=== PATIENT | female | born 1950 | race Caucasian/White ===

== ENCOUNTER 2022-03-27 11:07 | Inpatient (IN) | payer OTHER ==
[2022-03-27 12:31] LABS: BASO % 0.7 % (0-2.0); EOS % 0.7 % (0-4.5); HEMATOCRIT 23.4 % (32.4-45.2); HEMOGLOBIN 7.6 GM/dL (10.7-15.3); LYMPH % 9.5 % (8-40); MCH 28.8 pg (25.7-33.7); MCHC 32.6 g/dl (32.0-36.0); MEAN CELL VOLUME 88.6 fl (80-96); MEAN PLT VOLUME 8.1 fl (7.5-11.1); MONO % 9.9 % (3.8-10.2); NEUT % 79.2 % (42.8-82.8); PLATELET COUNT 146 10^3/uL (134-434); RBC 2.64 M/mm3 (3.60-5.2); RDW 17.3 % (11.6-15.6); WHITE BLOOD COUNT 8.6 K/mm3 (4.0-10.0)
[2022-03-27] MEDS ORDERED: PIPERACILLIN/TAZOB 4.5 GM 4.5 GM in DEXTROSE 5%-WATER 100 ML IVPB ONE (13:56)
[2022-03-27] MEDS ORDERED: VANCOMYCIN/WATER 1,250 MG/250 ML BAG (RESTRICTED TO ID ONLY) IVPB ONE (13:57)
[2022-03-27 13:58] LABS: ALBUMIN 2.6 g/dl (3.4-5.0); BILIRUBIN,TOTAL 1.7 mg/dL (0.2-1); BLOOD UREA NITROGEN 56.6 mg/dL (7-18); CALCIUM 9.3 mg/dL (8.5-10.1); CREATININE 1.6 mg/dL (0.55-1.3); N-TERMINAL BNP 1011.6 pg/ml (5-125)
[2022-03-27] MEDS ORDERED: FUROSEMIDE 40 MG/4 ML INJECTABLE VIAL IVPUSH ONE (14:12)
[2022-03-27] MEDS ORDERED: PIPERACILLIN/TAZOB 4.5 GM 4.5 GM/100 ML BAG IVPB ONE (14:31)
[2022-03-27] MEDS ORDERED: FUROSEMIDE 40 MG/4 ML INJECTABLE VIAL ONE (14:31)
[2022-03-27] MEDS ORDERED: VANCOMYCIN/WATER FOR INJ (PEG) 1,000 MG/200 ML BAG IVPB ONE (14:40)
[2022-03-27 17:11] LABS: LACTIC ACID 2.5 mmol/L (0.4-2.0)
[2022-03-27 17:34] LABS: EPI CELLS 6 /uL (0-25.1); HYALINE CASTS 1 /uL (0-3.1); URINE APPEARANCE CLOUDY; URINE BACTERIA 7 /uL (0-1359); URINE BILIRUBIN NEGATIVE (NEGATIVE); URINE COLOR ORANGE; URINE GLUCOSE (UA) NEGATIVE (NEGATIVE); URINE KETONE NEGATIVE (NEGATIVE); URINE LEUK ESTERASE 1+ (NEGATIVE); URINE NITRITE NEGATIVE (NEGATIVE); URINE PROTEIN 2+ (NEGATIVE); URINE RBC 3154 /uL (0-23.9); URINE UROBILINOGEN 0.2 mg/dL (0.2-1.0); URINE WBC 14 /uL (0-25.8)
[2022-03-27 23:20] VITALS: BMI 46.8
[2022-03-28 09:13] LABS: EOS % 1.7 % (0-4.5); HEMATOCRIT 24.1 % (32.4-45.2); HEMOGLOBIN 7.9 GM/dL (10.7-15.3); MCH 28.5 pg (25.7-33.7); MCHC 32.7 g/dl (32.0-36.0); MEAN PLT VOLUME 8.5 fl (7.5-11.1); MONO % 12.2 % (3.8-10.2); NEUT % 70.1 % (42.8-82.8); PLATELET COUNT 134 10^3/uL (134-434); RBC 2.77 M/mm3 (3.60-5.2); RDW 17.9 % (11.6-15.6); WHITE BLOOD COUNT 9.6 K/mm3 (4.0-10.0)
[2022-03-28 09:17] LABS: BILIRUBIN,DIRECT 1.1 mg/dL (0.0-0.2)
[2022-03-28 09:19] LABS: BILIRUBIN,TOTAL 2.5 mg/dL (0.2-1)
[2022-03-28 09:21] LABS: ALBUMIN 2.2 g/dl (3.4-5.0); CALCIUM 8.9 mg/dL (8.5-10.1)
[2022-03-28 09:22] LABS: MAGNESIUM 2.2 mg/dL (1.8-2.4)
[2022-03-28 09:24] LABS: CREATININE 1.5 mg/dL (0.55-1.3)
[2022-03-28 09:25] LABS: PHOSPHOROUS 3.2 mg/dL (2.5-4.9)
[2022-03-28 09:26] LABS: BILIRUBIN,TOTAL 2.5 mg/dL (0.2-1); TOT PROT 6.3 g/dl (6.4-8.2)
[2022-03-28] MEDS ORDERED: FLU VACC QS2022-23(6MOS UP)/PF 60 MCG/0.5 ML SYRINGE IM ONE (10:00)
[2022-03-28] MEDS ORDERED: PNEUMOC 20-VAL CONJ-DIP CRM/PF 0.5 ML SYRINGE IM ONE (10:00)
[2022-03-28] MEDS ORDERED: PANTOPRAZOLE SODIUM 40 MG VIAL IVPUSH SCH (10:00)
[2022-03-28] MEDS ORDERED: FUROSEMIDE 40 MG/4 ML INJECTABLE VIAL IVPUSH SCH ×2 (10:00)
[2022-03-28] MEDS ORDERED: NYSTATIN POWDER 100,000 UNITS/GM - 15 GM TOPICAL POWDER TP ONE (10:58)
[2022-03-28 12:20] LABS: ACTIVATED PTT 29.4 SECONDS (25.2-36.5); INR 2.11 (0.83-1.09); PROTHROMBIN TIME (PATIENT) 24.4 SEC (9.7-13.0)
[2022-03-28] MEDS: INSULIN SLIDING SCALE (NOVOLOG) 1 VIAL SQ SCH ×5 (12:24→21:31)
[2022-03-28] MEDS: POLYETHYLENE GLYCOL (HEALTHYLAX) 3350 17 GM PACKET PO SCH ×2 (12:47→12:56)
[2022-03-28] MEDS ORDERED: NYSTATIN POWDER 100,000 UNITS/GM - 15 GM TOPICAL POWDER TP SCH (14:00)
[2022-03-28] MEDS: NYSTATIN POWDER 100,000 UNITS/GM - 15 GM TOPICAL POWDER TP SCH ×2 (15:14→23:21)
[2022-03-28] MEDS ORDERED: MELATONIN 5 MG TABLETS PO PRN (16:35)
[2022-03-28 16:36] LABS: HEMATOCRIT 24.4 % (32.4-45.2); HEMOGLOBIN 7.9 GM/dL (10.7-15.3); MCH 28.2 pg (25.7-33.7); MCHC 32.5 g/dl (32.0-36.0); MEAN CELL VOLUME 86.7 fl (80-96); MEAN PLT VOLUME 8.9 fl (7.5-11.1); PLATELET COUNT 142 10^3/uL (134-434); RBC 2.81 M/mm3 (3.60-5.2); RDW 18.1 % (11.6-15.6); WHITE BLOOD COUNT 9.8 K/mm3 (4.0-10.0)
[2022-03-28] MEDS: ACETAMINOPHEN 325 MG TABLET (FP) PO PRN (20:16)
[2022-03-28 21:29] LABS: CALCIUM 8.6 mg/dL (8.5-10.1)
[2022-03-28 21:33] LABS: CREATININE 1.4 mg/dL (0.55-1.3)
[2022-03-29] MEDS: INSULIN SLIDING SCALE (NOVOLOG) 1 VIAL SQ SCH ×4 (06:08→22:05)
[2022-03-29] MEDS: NYSTATIN POWDER 100,000 UNITS/GM - 15 GM TOPICAL POWDER TP SCH ×3 (06:08→22:07)
[2022-03-29 09:45] LABS: HEMOGLOBIN 8.4 GM/dL (10.7-15.3); MCH 28.3 pg (25.7-33.7); MCHC 32.1 g/dl (32.0-36.0); MEAN PLT VOLUME 8.8 fl (7.5-11.1); PLATELET COUNT 131 10^3/uL (134-434); RBC 2.96 M/mm3 (3.60-5.2); RDW 18.5 % (11.6-15.6); WHITE BLOOD COUNT 7.1 K/mm3 (4.0-10.0)
[2022-03-29] MEDS ORDERED: PANTOPRAZOLE 40 MG TABLET PO SCH (10:00)
[2022-03-29 10:12] LABS: ALBUMIN 2.2 g/dl (3.4-5.0)
[2022-03-29 10:17] LABS: TOT PROT 6.5 g/dl (6.4-8.2)
[2022-03-29] MEDS: POLYETHYLENE GLYCOL (HEALTHYLAX) 3350 17 GM PACKET PO SCH (10:44)
[2022-03-29] MEDS: FUROSEMIDE 40 MG/4 ML INJECTABLE VIAL IVPUSH SCH (10:44)
[2022-03-29] MEDS: PANTOPRAZOLE 40 MG TABLET PO SCH (10:44)
[2022-03-29] MEDS ORDERED: BISACODYL 5 MG TABLET.DR (FP) PO ONE (16:00)
[2022-03-29] MEDS ORDERED: PHYTONADIONE 10 MG/1 ML AMP SQ ONE ×2 (16:17→18:45)
[2022-03-29] MEDS ORDERED: PEG 3350/NA SULF BICARB CL/KCL 4000 ML SOLN.RECON PO ONE (17:00)
[2022-03-29] MEDS ORDERED: HYDROCHLOROTHIAZIDE 12.5 MG CAPSULE (FP) PO SCH (17:15)
[2022-03-29 17:16] LABS: CALCIUM 8.4 mg/dL (8.5-10.1)
[2022-03-29 17:17] LABS: BLOOD UREA NITROGEN 42.2 mg/dL (7-18)
[2022-03-29 17:20] LABS: CREATININE 1.4 mg/dL (0.55-1.3)
[2022-03-29] MEDS: ACETAMINOPHEN 325 MG TABLET (FP) PO PRN (20:26)
[2022-03-29 21:27] LABS: HEMATOCRIT 26.9 % (32.4-45.2); HEMOGLOBIN 8.7 GM/dL (10.7-15.3); MCH 28.2 pg (25.7-33.7); MCHC 32.2 g/dl (32.0-36.0); MEAN CELL VOLUME 87.5 fl (80-96); MEAN PLT VOLUME 8.6 fl (7.5-11.1); PLATELET COUNT 126 10^3/uL (134-434); RBC 3.08 M/mm3 (3.60-5.2); RDW 17.5 % (11.6-15.6); WHITE BLOOD COUNT 7.4 K/mm3 (4.0-10.0)
[2022-03-29] MEDS ORDERED: ATORVASTATIN CA 10 MG TABLET (FP) PO SCH (22:00)
[2022-03-29] MEDS ORDERED: ATENOLOL 50 MG TABLET (FP) PO SCH (22:00)
[2022-03-30] MEDS: NYSTATIN POWDER 100,000 UNITS/GM - 15 GM TOPICAL POWDER TP SCH ×3 (06:37→22:25)
[2022-03-30] MEDS: INSULIN SLIDING SCALE (NOVOLOG) 1 VIAL SQ SCH ×4 (06:37→22:24)
[2022-03-30] MEDS ORDERED: LISINOPRIL 10 MG TABLET PO SCH (10:00)
[2022-03-30 10:30] LABS: HEMATOCRIT 27.9 % (32.4-45.2); HEMOGLOBIN 9.3 GM/dL (10.7-15.3); LYMPH % 14.6 % (8-40); MCH 29.1 pg (25.7-33.7); MCHC 33.3 g/dl (32.0-36.0); MEAN CELL VOLUME 87.3 fl (80-96); MEAN PLT VOLUME 8.1 fl (7.5-11.1); MONO % 11.4 % (3.8-10.2); PLATELET COUNT 125 10^3/uL (134-434); RDW 17.6 % (11.6-15.6); WHITE BLOOD COUNT 7.1 K/mm3 (4.0-10.0)
[2022-03-30 10:33] LABS: INR 2.17 (0.83-1.09); PROTHROMBIN TIME (PATIENT) 25.1 SEC (9.7-13.0)
[2022-03-30 10:59] LABS: ALBUMIN 2.1 g/dl (3.4-5.0); CALCIUM 8.6 mg/dL (8.5-10.1)
[2022-03-30 11:02] LABS: CREATININE 1.2 mg/dL (0.55-1.3)
[2022-03-30 11:03] LABS: BILIRUBIN,TOTAL 2.4 mg/dL (0.2-1); TOT PROT 6.4 g/dl (6.4-8.2)
[2022-03-30] MEDS: FUROSEMIDE 40 MG/4 ML INJECTABLE VIAL IVPUSH SCH ×2 (14:25→14:40)
[2022-03-30] MEDS: POLYETHYLENE GLYCOL (HEALTHYLAX) 3350 17 GM PACKET PO SCH (14:41)
[2022-03-30] MEDS: PANTOPRAZOLE 40 MG TABLET PO SCH (14:42)
[2022-03-30 16:58] LABS: BLOOD UREA NITROGEN 37.1 mg/dL (7-18); CALCIUM 8.6 mg/dL (8.5-10.1)
[2022-03-30 16:59] LABS: ALBUMIN 2.1 g/dl (3.4-5.0)
[2022-03-30 17:02] LABS: CREATININE 1.3 mg/dL (0.55-1.3)
[2022-03-30 17:03] LABS: BILIRUBIN,TOTAL 1.9 mg/dL (0.2-1); TOT PROT 6.4 g/dl (6.4-8.2)
[2022-03-30] MEDS: ACETAMINOPHEN 325 MG TABLET (FP) PO PRN (22:25)
[2022-03-30] MEDS: propRANOLol HCL 10 MG TABLET PO SCH (22:25)
[2022-03-31 07:13] VITALS: BP 120/56; PULSE 72; RESP 18; TEMP 99
[2022-03-31] MEDS: INSULIN SLIDING SCALE (NOVOLOG) 1 VIAL SQ SCH (07:13)
[2022-03-31] MEDS: NYSTATIN POWDER 100,000 UNITS/GM - 15 GM TOPICAL POWDER TP SCH (07:14)
[2022-03-31] MEDS: FUROSEMIDE 40 MG/4 ML INJECTABLE VIAL IVPUSH SCH (07:15)
[2022-03-31] MEDS ORDERED: FUROSEMIDE 40 MG/4 ML INJECTABLE VIAL IVPUSH SCH (07:50)
[2022-03-31] MEDS: POLYETHYLENE GLYCOL (HEALTHYLAX) 3350 17 GM PACKET PO SCH (09:02)
[2022-03-31] MEDS: PANTOPRAZOLE 40 MG TABLET PO SCH (09:22)
[2022-03-31] MEDS: propRANOLol HCL 10 MG TABLET PO SCH (09:22)
== END 2022-03-31 10:00 | disposition short-term general hospital (02) | DRG 291 ==
LOC: JER 11:07 → JERBED 14:35 → J7W 21:33
PROVIDERS: ADMIT Internal Medicine; ATTEND Internal Medicine
PROC: 30233N1 Transfusion of Nonautologous Red Blood Cells into Peripheral Vein, Percutaneous Approach (ICD-10-PCS; 2022-03-30)
PROC: 0DJ08ZZ Inspection of Upper Intestinal Tract, Via Natural or Artificial Opening Endoscopic (ICD-10-PCS; principal; 2022-03-30 11:00)
DX: I11.0 Hypertensive heart disease with heart failure (principal); I50.31 Acute diastolic (congestive) heart failure; I85.00 Esophageal varices without bleeding; D64.9 Anemia, unspecified; E11.65 Type 2 diabetes mellitus with hyperglycemia; K75.81 Nonalcoholic steatohepatitis (NASH); E86.0 Dehydration; R16.0 Hepatomegaly, not elsewhere classified; I86.4 Gastric varices; E78.5 Hyperlipidemia, unspecified; E87.70 Fluid overload, unspecified
CPT/HCPCS: 0241U-QW; 36415; 36430; 71045-TC-FY; 76700-TC; 76856-TC; 80048; 80053; 80076; 81003; 82105; 82247; 82248; 82272; 82550; 82553; 82728; 82962; 83036; 83516; 83540; 83550; 83605; 83735; 83880; 84100; 84207; 84484; 85025; 85027; 85610; 85730; 86038; 86704; 86803; 86850; 86900; 86901; 86922; 87040; 87086; 87340; 87517; 93005; 93010; 93306-TC; 93970-TC; 97116-GP; 97161-GP; 99285-25; P9058

== ENCOUNTER 2022-05-19 10:31 | Inpatient (IN) | payer OTHER ==
[2022-05-19 11:04] VITALS: RESP 18
[2022-05-19 12:26] LABS: BASO % 0.6 % (0-2.0); EOS % 2.5 % (0-4.5); HEMATOCRIT 36.2 % (32.4-45.2); HEMOGLOBIN 12.3 GM/dL (10.7-15.3); LYMPH % 28.1 % (8-40); MCH 31.8 pg (25.7-33.7); MCHC 33.9 g/dl (32.0-36.0); MEAN CELL VOLUME 93.8 fl (80-96); MEAN PLT VOLUME 8.4 fl (7.5-11.1); MONO % 12.2 % (3.8-10.2); NEUT % 56.6 % (42.8-82.8); PLATELET COUNT 145 10^3/uL (134-434); RBC 3.86 M/mm3 (3.60-5.2); RDW 24.2 % (11.6-15.6); WHITE BLOOD COUNT 7.7 K/mm3 (4.0-10.0)
[2022-05-19 12:36] LABS: INR 1.87 (0.83-1.09); PROTHROMBIN TIME (PATIENT) 21.6 SEC (9.7-13.0)
[2022-05-19 12:37] LABS: CALCIUM 9.7 mg/dL (8.5-10.1)
[2022-05-19 12:38] LABS: ALBUMIN 2.3 g/dl (3.4-5.0); BLOOD UREA NITROGEN 49.3 mg/dL (7-18)
[2022-05-19 12:41] LABS: CREATININE 2.3 mg/dL (0.55-1.3)
[2022-05-19 12:42] LABS: BILIRUBIN,TOTAL 2.8 mg/dL (0.2-1)
[2022-05-19 12:49] LABS: EPI CELLS 4 /uL (0-25.1); HYALINE CASTS 7 /uL (0-3.1); URINE APPEARANCE TURBID; URINE BACTERIA >9,000 /uL (0-1359); URINE BILIRUBIN NEGATIVE (NEGATIVE); URINE COLOR ORANGE; URINE GLUCOSE (UA) NEGATIVE (NEGATIVE); URINE KETONE NEGATIVE (NEGATIVE); URINE LEUK ESTERASE 3+ (NEGATIVE); URINE NITRITE NEGATIVE (NEGATIVE); URINE PROTEIN 2+ (NEGATIVE); URINE RBC 5431 /uL (0-23.9); URINE WBC 8425 /uL (0-25.8)
[2022-05-19] MEDS ORDERED: LACTULOSE 20 GM/30 ML UDC (FOR ORAL USE ONLY) PO ONE (13:13)
[2022-05-19] MEDS ORDERED: CEFTRIAXONE 1 GM in DEXTROSE 5%-WATER - 100 ML IVPB ONE (13:13)
[2022-05-19] MEDS ORDERED: LACTATED RINGERS SOLUTION 1000 ML INFUS.BAG IV ONE (13:13)
[2022-05-19] MEDS ORDERED: LACTULOSE 20 GM/30 ML UDC (FOR ORAL USE ONLY) ONE (13:22)
[2022-05-19] MEDS ORDERED: CEFTRIAXONE 1 GM/50 ML BAG ONE (13:23)
[2022-05-19 14:34] LABS: ANISOCYTOSIS 2+; MACROCYTOSIS 0
[2022-05-19] MEDS: PANTOPRAZOLE 40 MG TABLET PO SCH (15:00)
[2022-05-19] MEDS: LACTATED RINGERS SOLUTION 1,000 ML/1,000 ML INFUS.BAG IV SCH (15:00)
[2022-05-19] MEDS ORDERED: PANTOPRAZOLE 40 MG TABLET PO ONE (15:33)
[2022-05-19 16:13] LABS: ALBUMIN 2.2 g/dl (3.4-5.0); CALCIUM 9.4 mg/dL (8.5-10.1)
[2022-05-19 16:14] LABS: BLOOD UREA NITROGEN 46.1 mg/dL (7-18)
[2022-05-19 16:18] LABS: BILIRUBIN,TOTAL 2.5 mg/dL (0.2-1); TOT PROT 7.4 g/dl (6.4-8.2)
[2022-05-19] MEDS: INSULIN SLIDING SCALE (NOVOLOG) 1 VIAL SQ SCH ×2 (17:24→22:09)
[2022-05-19 18:41] VITALS: BMI 33.0
[2022-05-19] MEDS: HEPARIN NA (PORCINE) 5,000 UNITS/ML 1ML VIAL SQ SCH (22:09)
[2022-05-20] MEDS: LACTATED RINGERS SOLUTION 1,000 ML/1,000 ML INFUS.BAG IV SCH (02:03)
[2022-05-20] MEDS: INSULIN SLIDING SCALE (NOVOLOG) 1 VIAL SQ SCH ×4 (06:47→21:10)
[2022-05-20 10:32] LABS: EOS % 2.3 % (0-4.5); HEMATOCRIT 32.9 % (32.4-45.2); HEMOGLOBIN 11.1 GM/dL (10.7-15.3); LYMPH % 25.5 % (8-40); MCH 31.8 pg (25.7-33.7); MCHC 33.9 g/dl (32.0-36.0); MEAN CELL VOLUME 93.9 fl (80-96); MEAN PLT VOLUME 8.3 fl (7.5-11.1); MONO % 11.9 % (3.8-10.2); NEUT % 59.3 % (42.8-82.8); PLATELET COUNT 119 10^3/uL (134-434); RDW 23.8 % (11.6-15.6); WHITE BLOOD COUNT 6.2 K/mm3 (4.0-10.0)
[2022-05-20] MEDS: PANTOPRAZOLE 40 MG TABLET PO SCH (10:49)
[2022-05-20] MEDS: ATENOLOL 25 MG TABLET (FP) PO SCH (10:49)
[2022-05-20] MEDS: HEPARIN NA (PORCINE) 5,000 UNITS/ML 1ML VIAL SQ SCH ×2 (10:49→21:05)
[2022-05-20] MEDS ORDERED: LACTATED RINGERS SOLUTION 1,000 ML/1,000 ML INFUS.BAG IV SCH (12:27)
[2022-05-20] MEDS: ACETAMINOPHEN 325 MG TABLET (FP) PO PRN ×2 (13:28→20:15)
[2022-05-20] MEDS: CEFTRIAXONE 1 GM in DEXTROSE 5%-WATER - 50 ML IVPB SCH (14:06)
[2022-05-21] MEDS: INSULIN SLIDING SCALE (NOVOLOG) 1 VIAL SQ SCH ×4 (06:19→22:35)
[2022-05-21 08:56] LABS: BASO % 1.5 % (0-2.0); EOS % 3.4 % (0-4.5); HEMATOCRIT 31.4 % (32.4-45.2); HEMOGLOBIN 10.7 GM/dL (10.7-15.3); LYMPH % 31.6 % (8-40); MCH 31.9 pg (25.7-33.7); MEAN PLT VOLUME 8.2 fl (7.5-11.1); MONO % 12.4 % (3.8-10.2); NEUT % 51.1 % (42.8-82.8); PLATELET COUNT 105 10^3/uL (134-434); RBC 3.34 M/mm3 (3.60-5.2); RDW 23.7 % (11.6-15.6); WHITE BLOOD COUNT 6.2 K/mm3 (4.0-10.0)
[2022-05-21 09:18] LABS: ALBUMIN 1.9 g/dl (3.4-5.0); BLOOD UREA NITROGEN 35.1 mg/dL (7-18)
[2022-05-21 09:21] LABS: CREATININE 1.5 mg/dL (0.55-1.3)
[2022-05-21 09:22] LABS: BILIRUBIN,TOTAL 2.1 mg/dL (0.2-1); TOT PROT 6.6 g/dl (6.4-8.2)
[2022-05-21] MEDS: CEFTRIAXONE 1 GM in DEXTROSE 5%-WATER - 50 ML IVPB SCH (09:29)
[2022-05-21] MEDS: HEPARIN NA (PORCINE) 5,000 UNITS/ML 1ML VIAL SQ SCH ×2 (09:30→22:24)
[2022-05-21] MEDS: ATENOLOL 25 MG TABLET (FP) PO SCH (09:30)
[2022-05-21] MEDS: MULTIVITAMINS (DAILY MVI) TABLET (FP) PO SCH (09:30)
[2022-05-21] MEDS: PANTOPRAZOLE 40 MG TABLET PO SCH (09:30)
[2022-05-21] MEDS: LACTATED RINGERS SOLUTION 1,000 ML/1,000 ML INFUS.BAG IV SCH ×2 (11:37→22:56)
[2022-05-21] MEDS: ACETAMINOPHEN 325 MG TABLET (FP) PO PRN (16:44)
[2022-05-21] MEDS: CEPHALEXIN MONOHYDRATE 500 MG CAPSULE (UD) PO SCH (22:25)
[2022-05-22] MEDS: INSULIN SLIDING SCALE (NOVOLOG) 1 VIAL SQ SCH ×4 (06:03→21:52)
[2022-05-22] MEDS: ATENOLOL 25 MG TABLET (FP) PO SCH (10:13)
[2022-05-22] MEDS: MULTIVITAMINS (DAILY MVI) TABLET (FP) PO SCH (10:17)
[2022-05-22] MEDS: CEPHALEXIN MONOHYDRATE 500 MG CAPSULE (UD) PO SCH ×2 (10:17→21:43)
[2022-05-22] MEDS: PANTOPRAZOLE 40 MG TABLET PO SCH (10:17)
[2022-05-22] MEDS: HEPARIN NA (PORCINE) 5,000 UNITS/ML 1ML VIAL SQ SCH ×2 (10:17→21:43)
[2022-05-22] MEDS: ACETAMINOPHEN 325 MG TABLET (FP) PO PRN ×2 (10:24→17:22)
[2022-05-22] MEDS: LACTATED RINGERS SOLUTION 1,000 ML/1,000 ML INFUS.BAG IV SCH (13:15)
[2022-05-22] MEDS: TRIMETHOBENZAMIDE HCL 200MG/2ML INJ IM PRN (21:43)
[2022-05-23] MEDS: INSULIN SLIDING SCALE (NOVOLOG) 1 VIAL SQ SCH ×4 (06:16→21:55)
[2022-05-23] MEDS: HEPARIN NA (PORCINE) 5,000 UNITS/ML 1ML VIAL SQ SCH ×2 (09:22→21:32)
[2022-05-23] MEDS: MULTIVITAMINS (DAILY MVI) TABLET (FP) PO SCH (09:23)
[2022-05-23] MEDS: ACETAMINOPHEN 325 MG TABLET (FP) PO PRN ×2 (09:23→20:02)
[2022-05-23] MEDS: ATENOLOL 25 MG TABLET (FP) PO SCH (09:23)
[2022-05-23] MEDS: CEPHALEXIN MONOHYDRATE 500 MG CAPSULE (UD) PO SCH ×2 (09:23→21:32)
[2022-05-23] MEDS: PANTOPRAZOLE 40 MG TABLET PO SCH (09:23)
[2022-05-23 11:03] LABS: HEMATOCRIT 33.8 % (32.4-45.2); HEMOGLOBIN 11.1 GM/dL (10.7-15.3); MCH 31.3 pg (25.7-33.7); MCHC 32.8 g/dl (32.0-36.0); MEAN CELL VOLUME 95.4 fl (80-96); MEAN PLT VOLUME 8.2 fl (7.5-11.1); PLATELET COUNT 131 10^3/uL (134-434); RBC 3.54 M/mm3 (3.60-5.2); RDW 23.5 % (11.6-15.6); WHITE BLOOD COUNT 7.8 K/mm3 (4.0-10.0)
[2022-05-23 11:45] LABS: BLOOD UREA NITROGEN 26.6 mg/dL (7-18); CALCIUM 8.7 mg/dL (8.5-10.1)
[2022-05-23 11:48] LABS: CREATININE 1.2 mg/dL (0.55-1.3)
[2022-05-23 11:49] LABS: BILIRUBIN,TOTAL 2.3 mg/dL (0.2-1); TOT PROT 6.8 g/dl (6.4-8.2)
[2022-05-23] MEDS ORDERED: SODIUM CHLORIDE 1,000 ML IV SCH (12:15)
[2022-05-23] MEDS ORDERED: REMDESIVIR 200 MG in SODIUM CHLORIDE 250 ML IVPB ONE ×2 (13:14→14:00)
[2022-05-24] MEDS: guaiFENesin/D-M SUGAR-FREE/ACLHOL-FREE 118 ML BOTTLE PO PRN (02:42)
[2022-05-24] MEDS: TRIMETHOBENZAMIDE HCL 200MG/2ML INJ IM PRN ×2 (05:52→17:29)
[2022-05-24] MEDS: INSULIN SLIDING SCALE (NOVOLOG) 1 VIAL SQ SCH ×4 (06:01→21:21)
[2022-05-24] MEDS: ATENOLOL 25 MG TABLET (FP) PO SCH (09:56)
[2022-05-24] MEDS: HEPARIN NA (PORCINE) 5,000 UNITS/ML 1ML VIAL SQ SCH ×2 (09:56→21:10)
[2022-05-24] MEDS: CEPHALEXIN MONOHYDRATE 500 MG CAPSULE (UD) PO SCH ×2 (09:56→21:29)
[2022-05-24] MEDS: MULTIVITAMINS (DAILY MVI) TABLET (FP) PO SCH (09:56)
[2022-05-24] MEDS: PANTOPRAZOLE 40 MG TABLET PO SCH (09:56)
[2022-05-24] MEDS: REMDESIVIR 100 MG in SODIUM CHLORIDE 250 ML IVPB SCH (09:58)
[2022-05-24] MEDS ORDERED: ZOLPIDEM TARTRATE 5 MG TABLET PO PRN (11:25)
[2022-05-24 11:30] LABS: BLOOD UREA NITROGEN 27.1 mg/dL (7-18); CALCIUM 8.5 mg/dL (8.5-10.1)
[2022-05-24 11:34] LABS: CREATININE 1.1 mg/dL (0.55-1.3)
[2022-05-24 11:35] LABS: BILIRUBIN,TOTAL 1.8 mg/dL (0.2-1); TOT PROT 6.8 g/dl (6.4-8.2)
[2022-05-24] MEDS: ACETAMINOPHEN 325 MG TABLET (FP) PO PRN (12:24)
[2022-05-25] MEDS: INSULIN SLIDING SCALE (NOVOLOG) 1 VIAL SQ SCH ×2 (06:30→12:16)
[2022-05-25] MEDS ORDERED: ASCORBIC ACID 250 MG TABLET (FP) PO SCH (10:00)
[2022-05-25] MEDS: HEPARIN NA (PORCINE) 5,000 UNITS/ML 1ML VIAL SQ SCH (10:03)
[2022-05-25] MEDS: MULTIVITAMINS (DAILY MVI) TABLET (FP) PO SCH (10:04)
[2022-05-25] MEDS: CEPHALEXIN MONOHYDRATE 500 MG CAPSULE (UD) PO SCH (10:04)
[2022-05-25] MEDS: PANTOPRAZOLE 40 MG TABLET PO SCH (10:04)
[2022-05-25] MEDS: ATENOLOL 25 MG TABLET (FP) PO SCH (10:04)
[2022-05-25] MEDS: guaiFENesin/D-M SUGAR-FREE/ACLHOL-FREE 118 ML BOTTLE PO PRN (10:05)
[2022-05-25] MEDS: REMDESIVIR 100 MG in SODIUM CHLORIDE 250 ML IVPB SCH (10:05)
[2022-05-25] MEDS: ACETAMINOPHEN 325 MG TABLET (FP) PO PRN (14:57)
[2022-05-25] MEDS: TRIMETHOBENZAMIDE HCL 200MG/2ML INJ IM PRN (14:58)
[2022-05-25 20:59] VITALS: BP 133/64; PULSE 88; TEMP 983
== END 2022-05-25 15:23 | DRG 689 ==
LOC: JER 10:31 → JERBED 11:21 → J5S 16:55
PROVIDERS: ADMIT Family Medicine; ATTEND Family Medicine
PROC: XW033E5 Introduction of Remdesivir Anti-infective into Peripheral Vein, Percutaneous Approach, New Technology Group 5 (ICD-10-PCS; principal; 2022-05-23)
DX: N39.0 Urinary tract infection, site not specified (principal); G93.41 Metabolic encephalopathy; U07.1 COVID-19; C22.9 Malignant neoplasm of liver, not specified as primary or secondary; N17.9 Acute kidney failure, unspecified; E72.20 Disorder of urea cycle metabolism, unspecified; I10 Essential (primary) hypertension; E78.5 Hyperlipidemia, unspecified; E11.9 Type 2 diabetes mellitus without complications; E86.0 Dehydration; B96.1 Klebsiella pneumoniae [K. pneumoniae] as the cause of diseases classified elsewhere; B96.4 Proteus (mirabilis) (morganii) as the cause of diseases classified elsewhere; D64.9 Anemia, unspecified; K76.0 Fatty (change of) liver, not elsewhere classified; L98.429 Non-pressure chronic ulcer of back with unspecified severity; Z85.42 Personal history of malignant neoplasm of other parts of uterus
CPT/HCPCS: 0241U-QW; 36415; 70450-TC; 71045-TC-FY; 80053; 80307; 81003; 82140; 82436; 82550; 82570; 82962; 84133; 84300; 84484; 85025; 85027; 85610; 85730; 86850; 86900; 86901; 87086; 87186; 93005; 93010; 97116-GP; 97162-GP; 99285-25; C9399; C9803-CS; J1644; U0003; U0005

== ENCOUNTER 2022-07-31 16:00 | Inpatient (IN) | payer OTHER ==
[2022-07-31 17:24] LABS: BASO % 0.5 % (0-2.0); EOS % 0.6 % (0-4.5); HEMATOCRIT 31.3 % (32.4-45.2); HEMOGLOBIN 10.6 GM/dL (10.7-15.3); LYMPH % 8.1 % (8-40); MCH 34.3 pg (25.7-33.7); MCHC 33.8 g/dl (32.0-36.0); MEAN CELL VOLUME 101.4 fl (80-96); MEAN PLT VOLUME 7.4 fl (7.5-11.1); MONO % 6.9 % (3.8-10.2); NEUT % 83.9 % (42.8-82.8); PLATELET COUNT 215 10^3/uL (134-434); RBC 3.09 M/mm3 (3.60-5.2); RDW 17.5 % (11.6-15.6); WHITE BLOOD COUNT 14.6 K/mm3 (4.0-10.0)
[2022-07-31 17:49] LABS: ANISOCYTOSIS 1+; MACROCYTOSIS 1+; TOXIC GRANULATION 2+
[2022-07-31 17:52] LABS: POTASSIUM 5.5 mmol/L (3.5-5.1)
[2022-07-31 17:55] LABS: INR 2.12 (0.83-1.09); PROTHROMBIN TIME (PATIENT) 24.4 SEC (9.7-13.0)
[2022-07-31 17:56] LABS: CALCIUM 9.1 mg/dL (8.5-10.1)
[2022-07-31 17:57] LABS: ALBUMIN 1.3 g/dl (3.4-5.0); BLOOD UREA NITROGEN 53.5 mg/dL (7-18); MAGNESIUM 1.9 mg/dL (1.8-2.4)
[2022-07-31 17:58] LABS: ACTIVATED PTT 37.5 SECONDS (25.2-36.5)
[2022-07-31 17:59] LABS: CREATININE 2.8 mg/dL (0.55-1.3); PHOSPHOROUS 3.8 mg/dL (2.5-4.9)
[2022-07-31 18:01] LABS: TOT PROT 6.5 g/dl (6.4-8.2)
[2022-07-31 18:05] LABS: N-TERMINAL BNP 230.4 pg/ml (5-125)
[2022-07-31] MEDS ORDERED: SODIUM ZIRCONIUM CYCLOSILICATE (LOKELMA) 5 GM PACKET PO ONE (18:13)
[2022-07-31] MEDS ORDERED: SODIUM ZIRCONIUM CYCLOSILICATE (LOKELMA) 5 GM PACKET ONE (18:20)
[2022-07-31] MEDS ORDERED: VANCOMYCIN 1 GM in D5W (PRE-DOCKED) 1,000 MG/250 ML (RESTRICTED TO ID ONLY IVPB ONE (18:33)
[2022-07-31] MEDS ORDERED: PIPERACILLIN/TAZOB 4.5 GM 4.5 GM in DEXTROSE 5%-WATER 100 ML IVPB ONE (18:33)
[2022-07-31] MEDS ORDERED: VANCOMYCIN/WATER FOR INJ (PEG) 1,000 MG/200 ML BAG IVPB ONE (18:55)
[2022-07-31] MEDS ORDERED: PIPERACILLIN/TAZOB 4.5 GM 4.5 GM/100 ML BAG IVPB ONE (18:55)
[2022-07-31] MEDS ORDERED: ENOXAPARIN NA (PORCINE) 40 MG/0.4 ML DISP.SYRIN SQ SCH (22:00)
[2022-07-31 22:11] LABS: EPI CELLS 20 /uL (0-25.1); HYALINE CASTS 3 /uL (0-3.1); URINE APPEARANCE CLOUDY; URINE BACTERIA 4114 /uL (0-1359); URINE BILIRUBIN 2+ (NEGATIVE); URINE COLOR DK YELLOW; URINE GLUCOSE (UA) NEGATIVE (NEGATIVE); URINE KETONE TRACE (NEGATIVE); URINE LEUK ESTERASE 2+ (NEGATIVE); URINE NITRITE POSITIVE (NEGATIVE); URINE PROTEIN TRACE (NEGATIVE); URINE WBC 131 /uL (0-25.8)
[2022-07-31 22:39] LABS: BILIRUBIN,DIRECT 3.5 mg/dL (0.0-0.2)
[2022-07-31 23:44] LABS: URINE RBC 95.3 /uL (0-23.9); YEAST FEW (NEGATIVE)
[2022-08-01] MEDS ORDERED: ALBUTEROL SO4 HFA INHALER IH PRN (01:57)
[2022-08-01] MEDS ORDERED: SODIUM CHLORIDE 1,000 ML IV SCH (02:15)
[2022-08-01] MEDS ORDERED: FUROSEMIDE 40 MG/4 ML INJECTABLE VIAL IVPUSH ONE (02:37)
[2022-08-01] MEDS: PIPERACILLIN/TAZOB 3.375 GM 3.375 GM in DEXTROSE 5%-WATER - 50 ML IVPB SCH ×5 (03:21→18:26)
[2022-08-01] MEDS: AMMONIUM LACTATE 12% LOTION 225 GM BOTTLE TP SCH (05:10)
[2022-08-01] MEDS ORDERED: LACTULOSE 20 GM/30 ML UDC (FOR ORAL USE ONLY) PO SCH ×2 (06:00→22:00)
[2022-08-01] MEDS ORDERED: PHYTONADIONE 5 MG TABLET PO SCH ×2 (06:00→10:00)
[2022-08-01] MEDS ORDERED: HEPARIN NA (PORCINE) 5,000 UNITS/ML 1ML VIAL SQ SCH (06:00)
[2022-08-01] MEDS: FUROSEMIDE 40 MG/4 ML INJECTABLE VIAL IVPUSH SCH ×2 (06:21→14:26)
[2022-08-01] MEDS ORDERED: INSULIN (NOVOLOG) ASPART 100 UNITS/ML 10ML VIAL ONE ×2 (06:27→17:35)
[2022-08-01] MEDS: INSULIN SLIDING SCALE (NOVOLOG) 1 VIAL SQ SCH ×4 (06:28→22:36)
[2022-08-01] MEDS ORDERED: SODIUM CHLORIDE 1 GM TABLET PO SCH (10:00)
[2022-08-01] MEDS ORDERED: FUROSEMIDE 40 MG TABLET (FP) PO SCH (10:00)
[2022-08-01] MEDS ORDERED: PHYTONADIONE 10 MG/1 ML AMP IVPB ONE (10:16)
[2022-08-01 10:22] LABS: HEMATOCRIT 28.6 % (32.4-45.2); HEMOGLOBIN 9.8 GM/dL (10.7-15.3); MCH 34.7 pg (25.7-33.7); MCHC 34.2 g/dl (32.0-36.0); MEAN CELL VOLUME 101.4 fl (80-96); MEAN PLT VOLUME 7.2 fl (7.5-11.1); PLATELET COUNT 180 10^3/uL (134-434); RBC 2.82 M/mm3 (3.60-5.2); RDW 17.2 % (11.6-15.6); WHITE BLOOD COUNT 17.1 K/mm3 (4.0-10.0)
[2022-08-01 10:28] LABS: INR 2.53 (0.83-1.09); PROTHROMBIN TIME (PATIENT) 29.1 SEC (9.7-13.0)
[2022-08-01 10:31] LABS: ACTIVATED PTT 43.8 SECONDS (25.2-36.5)
[2022-08-01 10:45] LABS: POTASSIUM 4.9 mmol/L (3.5-5.1)
[2022-08-01 10:47] LABS: CALCIUM 8.9 mg/dL (8.5-10.1)
[2022-08-01 10:48] LABS: ALBUMIN 1.2 g/dl (3.4-5.0); BLOOD UREA NITROGEN 56.6 mg/dL (7-18)
[2022-08-01 10:51] LABS: CREATININE 2.9 mg/dL (0.55-1.3)
[2022-08-01 10:52] LABS: BILIRUBIN,TOTAL 4.5 mg/dL (0.2-1); TOT PROT 5.8 g/dl (6.4-8.2)
[2022-08-01 11:24] LABS: ANISOCYTOSIS 0; HELMET CELLS 0; HOWELL-JOLLY BODIES 0; MACROCYTOSIS 0; OVALOCYTE 0; ROULEAU 0; SICKELED CELLS 0; TARGET CELLS 0; TEAR DROP CELLS 0; TOXIC GRANULATION 0
[2022-08-01] MEDS: PANTOPRAZOLE 40 MG TABLET PO SCH (11:31)
[2022-08-01] MEDS: MULTIVITAMINS (DAILY MVI) TABLET (FP) PO SCH (11:31)
[2022-08-01] MEDS: hydrOXYzine HCL 10 MG/5 ML LIQUID BULK BOTTLE PO SCH ×2 (11:52→19:05)
[2022-08-01] MEDS: SPIRONOLACTONE 25 MG TABLET PO SCH (14:26)
[2022-08-01] MEDS: PIPERACILLIN/TAZOB 2.25 GM 2.25 GM in DEXTROSE 5%-WATER - 50 ML IVPB SCH ×2 (14:52→22:35)
[2022-08-01] MEDS: ALBUMIN HUMAN 25% 100 ML VIAL IV SCH ×2 (17:29→18:51)
[2022-08-01] MEDS ORDERED: SODIUM ZIRCONIUM CYCLOSILICATE (LOKELMA) 5 GM PACKET PO ONE (18:13)
[2022-08-01] MEDS: MELATONIN 5 MG TABLETS PO SCH (22:36)
[2022-08-01] MEDS: ATENOLOL 50 MG TABLET (FP) PO SCH (22:36)
[2022-08-01] MEDS: LACTULOSE 20 GM/30 ML UDC (FOR ORAL USE ONLY) PO SCH (22:36)
[2022-08-02] MEDS: ALBUMIN HUMAN 25% 100 ML VIAL IV SCH
[2022-08-02] MEDS: hydrOXYzine HCL 10 MG/5 ML LIQUID BULK BOTTLE PO SCH ×4 (00:33→17:55)
[2022-08-02] MEDS: AMMONIUM LACTATE 12% LOTION 225 GM BOTTLE TP SCH (03:04)
[2022-08-02] MEDS: PIPERACILLIN/TAZOB 2.25 GM 2.25 GM in DEXTROSE 5%-WATER - 50 ML IVPB SCH ×4 (03:04→21:28)
[2022-08-02] MEDS ORDERED: HEPARIN NA (PORCINE) 5,000 UNITS/ML 1ML VIAL SQ SCH (06:00)
[2022-08-02] MEDS ORDERED: INSULIN (NOVOLOG) ASPART 100 UNITS/ML 10ML VIAL ONE ×4 (06:21→21:24)
[2022-08-02] MEDS: FUROSEMIDE 40 MG/4 ML INJECTABLE VIAL IVPUSH SCH (06:44)
[2022-08-02] MEDS: INSULIN SLIDING SCALE (NOVOLOG) 1 VIAL SQ SCH ×4 (06:48→22:34)
[2022-08-02 08:31] LABS: POTASSIUM 5.6 mmol/L (3.5-5.1)
[2022-08-02 08:37] LABS: CALCIUM 9.1 mg/dL (8.5-10.1)
[2022-08-02 08:38] LABS: BLOOD UREA NITROGEN 68.8 mg/dL (7-18); MAGNESIUM 2.1 mg/dL (1.8-2.4)
[2022-08-02 08:41] LABS: CREATININE 3.2 mg/dL (0.55-1.3)
[2022-08-02 08:42] LABS: BILIRUBIN,TOTAL 4.4 mg/dL (0.2-1); TOT PROT 5.8 g/dl (6.4-8.2)
[2022-08-02 08:50] LABS: ALBUMIN 2.3 g/dl (3.4-5.0)
[2022-08-02] MEDS: ATENOLOL 50 MG TABLET (FP) PO SCH ×2 (10:29→22:29)
[2022-08-02] MEDS: LACTULOSE 20 GM/30 ML UDC (FOR ORAL USE ONLY) PO SCH ×2 (10:30→22:28)
[2022-08-02] MEDS: SPIRONOLACTONE 25 MG TABLET PO SCH (10:30)
[2022-08-02] MEDS: PANTOPRAZOLE 40 MG TABLET PO SCH (10:30)
[2022-08-02] MEDS: MULTIVITAMINS (DAILY MVI) TABLET (FP) PO SCH (10:30)
[2022-08-02] MEDS ORDERED: MIDODRINE HCL 5 MG TABLET PO SCH ×3 (10:36→19:00)
[2022-08-02 11:41] LABS: HEMATOCRIT 24.9 % (32.4-45.2); HEMOGLOBIN 8.7 GM/dL (10.7-15.3); MCH 35.7 pg (25.7-33.7); MCHC 34.9 g/dl (32.0-36.0); MEAN CELL VOLUME 102.2 fl (80-96); MEAN PLT VOLUME 7.7 fl (7.5-11.1); PLATELET COUNT 114 10^3/uL (134-434); RBC 2.43 M/mm3 (3.60-5.2); RDW 16.8 % (11.6-15.6); WHITE BLOOD COUNT 11.6 K/mm3 (4.0-10.0)
[2022-08-02 11:47] LABS: INR 2.25 (0.83-1.09); PROTHROMBIN TIME (PATIENT) 25.9 SEC (9.7-13.0)
[2022-08-02] MEDS ORDERED: PHYTONADIONE 10 MG/1 ML AMP IVPB ONE (11:52)
[2022-08-02 12:03] LABS: POTASSIUM 4.9 mmol/L (3.5-5.1)
[2022-08-02 12:05] LABS: ALBUMIN 2.1 g/dl (3.4-5.0); BLOOD UREA NITROGEN 69.4 mg/dL (7-18); CALCIUM 8.9 mg/dL (8.5-10.1)
[2022-08-02 12:08] LABS: CREATININE 3.2 mg/dL (0.55-1.3)
[2022-08-02 12:10] LABS: TOT PROT 5.5 g/dl (6.4-8.2)
[2022-08-02 12:17] LABS: ANISOCYTOSIS 2+; MACROCYTOSIS 2+; PLATELET ESTIMATE DECREASED
[2022-08-02] MEDS: MENTHOL TP SCH (13:33)
[2022-08-02] MEDS: ZINC OXIDE TP SCH (13:33)
[2022-08-02] MEDS: [UNRECOGNIZED DRUG - OTHER] TP SCH (13:33)
[2022-08-02] MEDS ORDERED: FUROSEMIDE 40 MG TABLET (FP) PO SCH (14:00)
[2022-08-02] MEDS: MIDODRINE HCL 5 MG TABLET PO SCH ×2 (15:42→22:44)
[2022-08-02] MEDS ORDERED: ACETAMINOPHEN 1000 MG/100 ML BAG IVPB PRN ×2 (19:08→19:21)
[2022-08-02] MEDS: MELATONIN 5 MG TABLETS PO SCH (22:29)
[2022-08-03] MEDS: hydrOXYzine HCL 10 MG/5 ML LIQUID BULK BOTTLE PO SCH ×5 (00:04→23:36)
[2022-08-03] MEDS: AMMONIUM LACTATE 12% LOTION 225 GM BOTTLE TP SCH (02:54)
[2022-08-03] MEDS: PIPERACILLIN/TAZOB 2.25 GM 2.25 GM in DEXTROSE 5%-WATER - 50 ML IVPB SCH ×4 (02:54→21:14)
[2022-08-03] MEDS ORDERED: HEPARIN NA (PORCINE) 5,000 UNITS/ML 1ML VIAL SQ SCH (06:00)
[2022-08-03] MEDS ORDERED: INSULIN (NOVOLOG) ASPART 100 UNITS/ML 10ML VIAL ONE ×4 (06:21→22:04)
[2022-08-03] MEDS: FUROSEMIDE 40 MG TABLET (FP) PO SCH ×2 (06:24→14:24)
[2022-08-03] MEDS: MIDODRINE HCL 5 MG TABLET PO SCH ×3 (06:24→22:06)
[2022-08-03] MEDS: INSULIN SLIDING SCALE (NOVOLOG) 1 VIAL SQ SCH ×4 (06:30→22:06)
[2022-08-03 07:23] LABS: HEMOGLOBIN 9.2 GM/dL (10.7-15.3); MCH 34.4 pg (25.7-33.7); MEAN CELL VOLUME 101.4 fl (80-96); MEAN PLT VOLUME 7.4 fl (7.5-11.1); PLATELET COUNT 130 10^3/uL (134-434); RBC 2.67 M/mm3 (3.60-5.2); RDW 16.8 % (11.6-15.6); WHITE BLOOD COUNT 16.8 K/mm3 (4.0-10.0)
[2022-08-03 07:30] LABS: INR 2.12 (0.83-1.09); PROTHROMBIN TIME (PATIENT) 24.4 SEC (9.7-13.0)
[2022-08-03] MEDS ORDERED: PHYTONADIONE 5 MG TABLET PO ONE (08:15)
[2022-08-03 09:16] LABS: ANISOCYTOSIS 1+; MACROCYTOSIS 1+; PLATELET ESTIMATE DECREASED
[2022-08-03] MEDS: PANTOPRAZOLE 40 MG TABLET PO SCH (09:43)
[2022-08-03] MEDS: SPIRONOLACTONE 25 MG TABLET PO SCH (09:43)
[2022-08-03] MEDS: LACTULOSE 20 GM/30 ML UDC (FOR ORAL USE ONLY) PO SCH ×2 (09:43→22:12)
[2022-08-03] MEDS: MULTIVITAMINS (DAILY MVI) TABLET (FP) PO SCH (09:43)
[2022-08-03] MEDS: ATENOLOL 50 MG TABLET (FP) PO SCH ×2 (09:44→22:08)
[2022-08-03] MEDS ORDERED: SODIUM CHLORIDE 500 ML IV ONE (12:30)
[2022-08-03] MEDS ORDERED: FENTANYL CITRATE/PF 50 MCG/ML VIAL ONE (12:39)
[2022-08-03 14:55] LABS: BF WBC & OTHER NUCLEATED CELLS 6016 /mm3
[2022-08-03] MEDS: ALBUMIN HUMAN 25% 12.5 GM/50 ML VIAL IV SCH ×4 (15:15→18:20)
[2022-08-03 15:41] LABS: BODY FLUID MONOCYTE 6 %
[2022-08-03] MEDS: MELATONIN 5 MG TABLETS PO SCH (22:05)
[2022-08-04] MEDS: AMMONIUM LACTATE 12% LOTION 225 GM BOTTLE TP SCH (02:54)
[2022-08-04] MEDS: PIPERACILLIN/TAZOB 2.25 GM 2.25 GM in DEXTROSE 5%-WATER - 50 ML IVPB SCH ×4 (03:06→21:26)
[2022-08-04] MEDS ORDERED: INSULIN (NOVOLOG) ASPART 100 UNITS/ML 10ML VIAL ONE ×3 (06:25→21:37)
[2022-08-04] MEDS: FUROSEMIDE 40 MG TABLET (FP) PO SCH (07:01)
[2022-08-04] MEDS: MIDODRINE HCL 5 MG TABLET PO SCH ×3 (07:01→21:52)
[2022-08-04] MEDS: hydrOXYzine HCL 10 MG/5 ML LIQUID BULK BOTTLE PO SCH (07:01)
[2022-08-04] MEDS: INSULIN SLIDING SCALE (NOVOLOG) 1 VIAL SQ SCH ×4 (07:02→21:54)
[2022-08-04 08:34] LABS: INR 2.2 (0.83-1.09); PROTHROMBIN TIME (PATIENT) 25.3 SEC (9.7-13.0)
[2022-08-04 08:35] LABS: HEMATOCRIT 27.2 % (32.4-45.2); HEMOGLOBIN 9.2 GM/dL (10.7-15.3); MCH 34.9 pg (25.7-33.7); MCHC 33.9 g/dl (32.0-36.0); MEAN CELL VOLUME 102.7 fl (80-96); MEAN PLT VOLUME 7.8 fl (7.5-11.1); PLATELET COUNT 123 10^3/uL (134-434); RBC 2.65 M/mm3 (3.60-5.2); RDW 17.1 % (11.6-15.6); WHITE BLOOD COUNT 17.8 K/mm3 (4.0-10.0)
[2022-08-04 08:43] LABS: POTASSIUM 4.6 mmol/L (3.5-5.1)
[2022-08-04 08:47] LABS: CALCIUM 8.7 mg/dL (8.5-10.1)
[2022-08-04 08:48] LABS: ALBUMIN 2.1 g/dl (3.4-5.0); BLOOD UREA NITROGEN 77.9 mg/dL (7-18)
[2022-08-04 08:50] LABS: BILIRUBIN,DIRECT 2.3 mg/dL (0.0-0.2)
[2022-08-04 08:51] LABS: CREATININE 3.7 mg/dL (0.55-1.3)
[2022-08-04 08:52] LABS: BILIRUBIN,TOTAL 3.2 mg/dL (0.2-1)
[2022-08-04] MEDS: LACTULOSE 20 GM/30 ML UDC (FOR ORAL USE ONLY) PO SCH ×2 (09:00→09:31)
[2022-08-04] MEDS: PANTOPRAZOLE 40 MG TABLET PO SCH (09:00)
[2022-08-04] MEDS: SPIRONOLACTONE 25 MG TABLET PO SCH (09:01)
[2022-08-04] MEDS: ATENOLOL 50 MG TABLET (FP) PO SCH ×2 (09:01→21:56)
[2022-08-04] MEDS: MULTIVITAMINS (DAILY MVI) TABLET (FP) PO SCH (09:01)
[2022-08-04 10:51] LABS: ANISOCYTOSIS 0; MACROCYTOSIS 0
[2022-08-04] MEDS: ACETAMINOPHEN 325 MG TABLET (FP) PO PRN (15:38)
[2022-08-04] MEDS: MELATONIN 5 MG TABLETS PO SCH (21:52)
[2022-08-05] MEDS: AMMONIUM LACTATE 12% LOTION 225 GM BOTTLE TP SCH (01:34)
[2022-08-05] MEDS: PIPERACILLIN/TAZOB 2.25 GM 2.25 GM in DEXTROSE 5%-WATER - 50 ML IVPB SCH ×4 (03:18→22:51)
[2022-08-05] MEDS: MIDODRINE HCL 5 MG TABLET PO SCH ×3 (07:04→22:52)
[2022-08-05] MEDS: FUROSEMIDE 40 MG TABLET (FP) PO SCH (07:04)
[2022-08-05] MEDS ORDERED: INSULIN (NOVOLOG) ASPART 100 UNITS/ML 10ML VIAL ONE ×2 (07:05→16:45)
[2022-08-05] MEDS: INSULIN SLIDING SCALE (NOVOLOG) 1 VIAL SQ SCH ×4 (07:07→22:52)
[2022-08-05] MEDS: ATENOLOL 50 MG TABLET (FP) PO SCH ×2 (10:28→22:53)
[2022-08-05] MEDS: SPIRONOLACTONE 25 MG TABLET PO SCH (10:28)
[2022-08-05] MEDS: MULTIVITAMINS (DAILY MVI) TABLET (FP) PO SCH (10:28)
[2022-08-05] MEDS: PANTOPRAZOLE 40 MG TABLET PO SCH (10:28)
[2022-08-05] MEDS ORDERED: PIPERACILLIN/TAZOBACTAM 2.25 GM VIAL IVPB ONE (10:48)
[2022-08-05] MEDS: LACTULOSE 20 GM/30 ML UDC (FOR ORAL USE ONLY) PO SCH (10:59)
[2022-08-05 13:42] LABS: HEMATOCRIT 31.9 % (32.4-45.2); HEMOGLOBIN 10.8 GM/dL (10.7-15.3); MCH 34.4 pg (25.7-33.7); MCHC 33.8 g/dl (32.0-36.0); MEAN CELL VOLUME 101.7 fl (80-96); MEAN PLT VOLUME 7.6 fl (7.5-11.1); PLATELET COUNT 167 10^3/uL (134-434); RBC 3.14 M/mm3 (3.60-5.2); RDW 17.3 % (11.6-15.6); WHITE BLOOD COUNT 24.4 K/mm3 (4.0-10.0)
[2022-08-05 13:48] LABS: INR 2.03 (0.83-1.09); PROTHROMBIN TIME (PATIENT) 23.4 SEC (9.7-13.0)
[2022-08-05 14:00] LABS: POTASSIUM 4.8 mmol/L (3.5-5.1)
[2022-08-05 14:02] LABS: BLOOD UREA NITROGEN 84.3 mg/dL (7-18); CALCIUM 8.5 mg/dL (8.5-10.1); MAGNESIUM 2.1 mg/dL (1.8-2.4)
[2022-08-05 14:03] LABS: ALBUMIN 1.9 g/dl (3.4-5.0)
[2022-08-05 14:05] LABS: BILIRUBIN,DIRECT 2.6 mg/dL (0.0-0.2); CREATININE 3.9 mg/dL (0.55-1.3)
[2022-08-05 14:07] LABS: BILIRUBIN,TOTAL 3.5 mg/dL (0.2-1); TOT PROT 5.3 g/dl (6.4-8.2)
[2022-08-05 14:08] LABS: ANISOCYTOSIS 2+; MACROCYTOSIS 2+; PLATELET ESTIMATE DECREASED
[2022-08-05] MEDS: ALBUMIN HUMAN 25% 100 ML VIAL IV SCH ×2 (15:13→22:05)
[2022-08-05] MEDS: MELATONIN 5 MG TABLETS PO SCH (22:52)
[2022-08-06] MEDS: ACETAMINOPHEN 325 MG TABLET (FP) PO PRN ×2 (01:28→22:38)
[2022-08-06] MEDS: AMMONIUM LACTATE 12% LOTION 225 GM BOTTLE TP SCH (02:50)
[2022-08-06] MEDS: PIPERACILLIN/TAZOB 2.25 GM 2.25 GM in DEXTROSE 5%-WATER - 50 ML IVPB SCH ×3 (04:17→15:31)
[2022-08-06] MEDS: FUROSEMIDE 40 MG TABLET (FP) PO SCH (07:18)
[2022-08-06] MEDS: MIDODRINE HCL 5 MG TABLET PO SCH ×3 (07:18→21:48)
[2022-08-06] MEDS: INSULIN SLIDING SCALE (NOVOLOG) 1 VIAL SQ SCH ×4 (07:19→21:48)
[2022-08-06 09:49] LABS: BASO % 0.9 % (0-2.0); HEMATOCRIT 28.3 % (32.4-45.2); HEMOGLOBIN 9.6 GM/dL (10.7-15.3); LYMPH % 6.8 % (8-40); MCH 34.1 pg (25.7-33.7); MCHC 33.8 g/dl (32.0-36.0); MEAN PLT VOLUME 7.6 fl (7.5-11.1); MONO % 7.6 % (3.8-10.2); NEUT % 81.7 % (42.8-82.8); PLATELET COUNT 101 10^3/uL (134-434); RBC 2.81 M/mm3 (3.60-5.2); RDW 16.8 % (11.6-15.6); WHITE BLOOD COUNT 15.9 K/mm3 (4.0-10.0)
[2022-08-06] MEDS: LACTULOSE 20 GM/30 ML UDC (FOR ORAL USE ONLY) PO SCH (10:05)
[2022-08-06] MEDS: PANTOPRAZOLE 40 MG TABLET PO SCH (10:05)
[2022-08-06] MEDS: MULTIVITAMINS (DAILY MVI) TABLET (FP) PO SCH (10:05)
[2022-08-06 10:09] LABS: CALCIUM 8.6 mg/dL (8.5-10.1)
[2022-08-06 10:10] LABS: BLOOD UREA NITROGEN 89.6 mg/dL (7-18); MAGNESIUM 2.1 mg/dL (1.8-2.4)
[2022-08-06] MEDS: ATENOLOL 50 MG TABLET (FP) PO SCH ×2 (10:10→21:41)
[2022-08-06] MEDS: SPIRONOLACTONE 25 MG TABLET PO SCH (10:11)
[2022-08-06 10:12] LABS: BILIRUBIN,DIRECT 2.6 mg/dL (0.0-0.2)
[2022-08-06 10:14] LABS: TOT PROT 5.4 g/dl (6.4-8.2)
[2022-08-06 10:16] LABS: ALBUMIN 2.4 g/dl (3.4-5.0); BILIRUBIN,TOTAL 3.8 mg/dL (0.2-1)
[2022-08-06 10:19] LABS: ANISOCYTOSIS 1+; MACROCYTOSIS 1+
[2022-08-06] MEDS: ALBUMIN HUMAN 25% 12.5 GM/50 ML VIAL IV SCH ×8 (10:53→15:50)
[2022-08-06] MEDS ORDERED: ONDANSETRON 4 MG/2 ML VIAL IVPUSH ONE (14:23)
[2022-08-06] MEDS ORDERED: CEFTRIAXONE 1 GM in DEXTROSE 5%-WATER - 50 ML IVPB SCH (15:00)
[2022-08-06] MEDS ORDERED: INSULIN (NOVOLOG) ASPART 100 UNITS/ML 10ML VIAL ONE ×2 (16:23→21:47)
[2022-08-06] MEDS: CEFTRIAXONE 2 GM in DEXTROSE 5%-WATER 100 ML IVPB SCH (17:29)
[2022-08-06 18:52] LABS: BF WBC & OTHER NUCLEATED CELLS 1624 /mm3
[2022-08-06 20:35] LABS: BODY FLUID MACROPHAGES 9 %; BODY FLUID MONOCYTE 8 %
[2022-08-06] MEDS: MELATONIN 5 MG TABLETS PO SCH (21:42)
[2022-08-07] MEDS: AMMONIUM LACTATE 12% LOTION 225 GM BOTTLE TP SCH (01:13)
[2022-08-07] MEDS: MIDODRINE HCL 5 MG TABLET PO SCH ×3 (06:01→21:38)
[2022-08-07] MEDS: FUROSEMIDE 40 MG TABLET (FP) PO SCH (06:01)
[2022-08-07] MEDS ORDERED: INSULIN (NOVOLOG) ASPART 100 UNITS/ML 10ML VIAL ONE ×2 (06:37→12:14)
[2022-08-07] MEDS: INSULIN SLIDING SCALE (NOVOLOG) 1 VIAL SQ SCH ×4 (06:38→21:38)
[2022-08-07] MEDS: PANTOPRAZOLE 40 MG TABLET PO SCH (10:29)
[2022-08-07] MEDS: LACTULOSE 20 GM/30 ML UDC (FOR ORAL USE ONLY) PO SCH (10:29)
[2022-08-07] MEDS: MULTIVITAMINS (DAILY MVI) TABLET (FP) PO SCH (10:29)
[2022-08-07] MEDS: SPIRONOLACTONE 25 MG TABLET PO SCH (10:30)
[2022-08-07] MEDS: CEFTRIAXONE 2 GM in DEXTROSE 5%-WATER 100 ML IVPB SCH (10:30)
[2022-08-07] MEDS: ATENOLOL 50 MG TABLET (FP) PO SCH ×2 (10:30→21:38)
[2022-08-07] MEDS: ALBUMIN HUMAN 25% 12.5 GM/50 ML VIAL IV SCH ×2 (15:50→21:37)
[2022-08-07 16:08] LABS: BODY FLUID ALBUMIN 0.6 g/dL (Not Estab.)
[2022-08-07] MEDS: OCTREOTIDE ACETATE 500 MCG/1 ML - 1 ML VIAL SQ SCH ×2 (16:10→22:44)
[2022-08-07] MEDS: MELATONIN 5 MG TABLETS PO SCH (21:38)
[2022-08-07] MEDS: HEPARIN NA (PORCINE) 5,000 UNITS/ML 1ML VIAL SQ SCH (21:38)
[2022-08-08] MEDS: AMMONIUM LACTATE 12% LOTION 225 GM BOTTLE TP SCH (02:51)
[2022-08-08] MEDS: ALBUMIN HUMAN 25% 12.5 GM/50 ML VIAL IV SCH ×2 (02:51→09:38)
[2022-08-08] MEDS: FUROSEMIDE 40 MG TABLET (FP) PO SCH (05:18)
[2022-08-08] MEDS: ACETAMINOPHEN 325 MG TABLET (FP) PO PRN (05:18)
[2022-08-08] MEDS: MIDODRINE HCL 5 MG TABLET PO SCH ×3 (05:19→23:16)
[2022-08-08] MEDS: HEPARIN NA (PORCINE) 5,000 UNITS/ML 1ML VIAL SQ SCH ×3 (05:19→23:15)
[2022-08-08] MEDS: INSULIN SLIDING SCALE (NOVOLOG) 1 VIAL SQ SCH ×4 (06:07→23:43)
[2022-08-08] MEDS: OCTREOTIDE ACETATE 500 MCG/1 ML - 1 ML VIAL SQ SCH (07:46)
[2022-08-08 09:05] LABS: BASO % 1.1 % (0-2.0); EOS % 4.6 % (0-4.5); HEMATOCRIT 29.7 % (32.4-45.2); HEMOGLOBIN 10.2 GM/dL (10.7-15.3); LYMPH % 8.3 % (8-40); MCH 34.8 pg (25.7-33.7); MCHC 34.3 g/dl (32.0-36.0); MEAN CELL VOLUME 101.3 fl (80-96); MEAN PLT VOLUME 7.6 fl (7.5-11.1); MONO % 9.1 % (3.8-10.2); NEUT % 76.9 % (42.8-82.8); PLATELET COUNT 115 10^3/uL (134-434); RBC 2.93 M/mm3 (3.60-5.2); RDW 17.5 % (11.6-15.6); WHITE BLOOD COUNT 15.5 K/mm3 (4.0-10.0)
[2022-08-08 09:32] LABS: POTASSIUM 4.5 mmol/L (3.5-5.1)
[2022-08-08 09:42] LABS: BLOOD UREA NITROGEN 90.2 mg/dL (7-18); CALCIUM 9.1 mg/dL (8.5-10.1); MAGNESIUM 2.1 mg/dL (1.8-2.4)
[2022-08-08 09:45] LABS: PHOSPHOROUS 5.7 mg/dL (2.5-4.9)
[2022-08-08 09:46] LABS: CREATININE 3.9 mg/dL (0.55-1.3)
[2022-08-08] MEDS: ATENOLOL 50 MG TABLET (FP) PO SCH ×3 (10:03→23:15)
[2022-08-08] MEDS: MULTIVITAMINS (DAILY MVI) TABLET (FP) PO SCH (10:03)
[2022-08-08] MEDS: PANTOPRAZOLE 40 MG TABLET PO SCH (10:04)
[2022-08-08] MEDS: LACTULOSE 20 GM/30 ML UDC (FOR ORAL USE ONLY) PO SCH ×2 (10:04→10:09)
[2022-08-08] MEDS: CEFTRIAXONE 2 GM in DEXTROSE 5%-WATER 100 ML IVPB SCH (10:04)
[2022-08-08 12:02] LABS: ANISOCYTOSIS 1+; MACROCYTOSIS 0; PLATELET ESTIMATE DECREASED
[2022-08-08] MEDS ORDERED: INSULIN (NOVOLOG) ASPART 100 UNITS/ML 10ML VIAL ONE (12:02)
[2022-08-08] MEDS: ONDANSETRON 4 MG/2 ML VIAL IVPUSH PRN (13:46)
[2022-08-08] MEDS: OCTREOTIDE ACETATE 100 MCG/1 ML SQ SCH ×2 (14:26→23:16)
[2022-08-08 14:58] VITALS: BMI 45.5
[2022-08-08] MEDS: MELATONIN 5 MG TABLETS PO SCH (23:15)
[2022-08-09] MEDS: AMMONIUM LACTATE 12% LOTION 225 GM BOTTLE TP SCH (03:07)
[2022-08-09] MEDS: ONDANSETRON 4 MG/2 ML VIAL IVPUSH PRN ×2 (05:30→13:53)
[2022-08-09] MEDS: FUROSEMIDE 40 MG TABLET (FP) PO SCH (06:54)
[2022-08-09] MEDS: MIDODRINE HCL 5 MG TABLET PO SCH ×3 (06:54→22:21)
[2022-08-09] MEDS: HEPARIN NA (PORCINE) 5,000 UNITS/ML 1ML VIAL SQ SCH ×3 (06:54→22:21)
[2022-08-09] MEDS: OCTREOTIDE ACETATE 100 MCG/1 ML SQ SCH ×3 (06:55→23:14)
[2022-08-09] MEDS: INSULIN SLIDING SCALE (NOVOLOG) 1 VIAL SQ SCH ×4 (07:55→23:35)
[2022-08-09] MEDS: ATENOLOL 50 MG TABLET (FP) PO SCH ×3 (09:41→22:14)
[2022-08-09] MEDS: MULTIVITAMINS (DAILY MVI) TABLET (FP) PO SCH (09:41)
[2022-08-09] MEDS: PANTOPRAZOLE 40 MG TABLET PO SCH (09:41)
[2022-08-09] MEDS: LACTULOSE 20 GM/30 ML UDC (FOR ORAL USE ONLY) PO SCH (09:42)
[2022-08-09] MEDS: CEFTRIAXONE 2 GM in DEXTROSE 5%-WATER 100 ML IVPB SCH (09:42)
[2022-08-09] MEDS ORDERED: CIPROFLOXACIN 250 MG TABLET (RESTRICTED TO ID) PO ONE (10:55)
[2022-08-09] MEDS ORDERED: INSULIN (NOVOLOG) ASPART 100 UNITS/ML 10ML VIAL ONE ×3 (11:48→23:33)
[2022-08-09] MEDS: MELATONIN 5 MG TABLETS PO SCH (22:20)
[2022-08-09] MEDS: ACETAMINOPHEN 325 MG TABLET (FP) PO PRN (23:13)
[2022-08-09 23:31] VITALS: RESP 17
[2022-08-10] MEDS: AMMONIUM LACTATE 12% LOTION 225 GM BOTTLE TP SCH (03:19)
[2022-08-10] MEDS ORDERED: CIPROFLOXACIN 250 MG TABLET (RESTRICTED TO ID) PO SCH (06:00)
[2022-08-10] MEDS: FUROSEMIDE 40 MG TABLET (FP) PO SCH (06:26)
[2022-08-10] MEDS: HEPARIN NA (PORCINE) 5,000 UNITS/ML 1ML VIAL SQ SCH (06:26)
[2022-08-10] MEDS: OCTREOTIDE ACETATE 100 MCG/1 ML SQ SCH (06:26)
[2022-08-10] MEDS: INSULIN SLIDING SCALE (NOVOLOG) 1 VIAL SQ SCH ×2 (06:27→12:30)
[2022-08-10] MEDS: MIDODRINE HCL 5 MG TABLET PO SCH (06:27)
[2022-08-10 08:35] LABS: HEMATOCRIT 30.1 % (32.4-45.2); HEMOGLOBIN 10.4 GM/dL (10.7-15.3); MCH 34.7 pg (25.7-33.7); MCHC 34.5 g/dl (32.0-36.0); MEAN CELL VOLUME 100.8 fl (80-96); MEAN PLT VOLUME 7.3 fl (7.5-11.1); PLATELET COUNT 151 10^3/uL (134-434); RBC 2.99 M/mm3 (3.60-5.2); RDW 16.9 % (11.6-15.6); WHITE BLOOD COUNT 16.3 K/mm3 (4.0-10.0)
[2022-08-10 09:02] LABS: POTASSIUM 4.2 mmol/L (3.5-5.1)
[2022-08-10 09:08] LABS: ALBUMIN 2.3 g/dl (3.4-5.0); BLOOD UREA NITROGEN 94.1 mg/dL (7-18); CALCIUM 8.9 mg/dL (8.5-10.1)
[2022-08-10 09:11] LABS: CREATININE 3.7 mg/dL (0.55-1.3)
[2022-08-10 09:13] LABS: BILIRUBIN,TOTAL 3.2 mg/dL (0.2-1); TOT PROT 5.7 g/dl (6.4-8.2)
[2022-08-10 09:23] LABS: ANISOCYTOSIS 1+; MACROCYTOSIS 1+
[2022-08-10] MEDS: PANTOPRAZOLE 40 MG TABLET PO SCH (10:31)
[2022-08-10] MEDS: MULTIVITAMINS (DAILY MVI) TABLET (FP) PO SCH (10:31)
[2022-08-10] MEDS: LACTULOSE 20 GM/30 ML UDC (FOR ORAL USE ONLY) PO SCH (10:33)
[2022-08-10] MEDS: ATENOLOL 50 MG TABLET (FP) PO SCH (11:24)
[2022-08-10 13:49] VITALS: BP 111/51; PULSE 67; TEMP 97.9
== END 2022-08-10 14:30 | DRG 435 ==
LOC: JER 16:00 → JERBED 19:19 → J8W 23:23
PROVIDERS: ADMIT Internal Medicine; ATTEND Nurse Practitioner Family
PROC: 0W9G30Z Drainage of Peritoneal Cavity with Drainage Device, Percutaneous Approach (ICD-10-PCS; principal; 2022-08-03)
DX: C22.8 Malignant neoplasm of liver, primary, unspecified as to type (principal); J18.9 Pneumonia, unspecified organism; K65.2 Spontaneous bacterial peritonitis; N17.9 Acute kidney failure, unspecified; K76.6 Portal hypertension; E87.1 Hypo-osmolality and hyponatremia; R18.8 Other ascites; J90 Pleural effusion, not elsewhere classified; Z68.42 Body mass index [BMI] 45.0-49.9, adult; I85.00 Esophageal varices without bleeding; C79.82 Secondary malignant neoplasm of genital organs; K76.82 Hepatic encephalopathy; E11.9 Type 2 diabetes mellitus without complications; E87.70 Fluid overload, unspecified; E87.5 Hyperkalemia; F41.9 Anxiety disorder, unspecified; D69.6 Thrombocytopenia, unspecified; K31.89 Other diseases of stomach and duodenum; I10 Essential (primary) hypertension; E78.5 Hyperlipidemia, unspecified; E66.01 Morbid (severe) obesity due to excess calories; Z66 Do not resuscitate; K75.81 Nonalcoholic steatohepatitis (NASH); Z78.9 Other specified health status
CPT/HCPCS: 36415; 36430; 49418; 71045-TC-FY; 71250-TC; 74176-TC; 80048; 80053; 80076; 81003; 82042; 82140; 82150; 82248; 82465; 82945; 82962; 83615; 83690; 83735; 83880; 83986; 84100; 84157; 85025; 85610; 85730; 86850; 86900; 86901; 87040; 87070; 87075; 87081; 87086; 87102; 87116; 87186; 87205; 87206; 87210; 88108; 88305-TC; 93005; 93010; 97161-GP; 99285-25; C1729; C1769; C1894; C9803-CS; J1644; P9017; P9047; U0003; U0005